=== PATIENT | female | born 1990 | race Caucasian/White ===

== ENCOUNTER 2017-09-27 12:27 | Emergency (ER) | payer OTHER ==
[2017-09-27 13:22] VITALS: BP 108/68
--- NOTE | 2017-09-27 15:04 | UC ---
FLU HPI - HPI Summary HPI Summary: fever and sore throat for 2 days is feeling better today--no cough ear ache, abd pain nausea vomiting or diarrhea - History of Current Complaint Chief Complaint: UCRespiratory Stated Complaint: THROAT COMPLAINT,FEVER Time Seen by Provider: 09/27/17 14:02 Hx Obtained From: Patient Hx Last Menstrual Period: on Depo Provera ?: No Onset/Duration: Sudden Onset, Lasting Days - 2, Still Present - but better Severity Currently: Mild Severity Initially: Mild Associated Signs & Symptoms: Positive: Fever, Sore Throat Related Hx: Possible Flu/Infectious Exposure - works doing day care - Allergy/Home Medications Allergies/Adverse Reactions: Allergies Allergy/AdvReac Type Severity Reaction Status Date / Time No Known Allergies Allergy Verified 09/27/17 13:18 Home Medications: Home Medications Ibuprofen TAB* [Motrin TAB* 600 MG] 400 mg PO Q8H PRN 09/27/17 [History Confirmed 09/27/17] PMH/Surg Hx/FS Hx/Imm Hx Previously Healthy: Yes - Surgical History Surgical History: None - Family History Known Family History: Positive: None Negative: Cardiac Disease, Hypertension - Social History Occupation: Works From/At Home Lives: With Family Alcohol Use: None Substance Use Type: None Smoking Status (MU): Never Smoked Tobacco Review of Systems Constitutional: Fever Skin: Negative Eyes: Negative ENT: Sore Throat Respiratory: Negative Cardiovascular: Negative Gastrointestinal: Negative Genitourinary: Negative Motor: Negative Neurovascular: Negative Musculoskeletal: Negative Neurological: Negative Psychological: Negative Is Patient Immunocompromised?: No All Other Systems Reviewed And Are Negative: Yes Physical Exam Triage Information Reviewed: Yes Appearance: Well-Appearing, No Pain Distress, Well-Nourished Vital Signs: Initial Vital Signs Temp 98.8 F 09/27/17 13:19 Pulse 80 09/27/17 13:19 Resp 18 09/27/17 13:19 BP 108/68 09/27/17 13:19 Pulse Ox 100 09/27/17 13:19 Vital Signs Reviewed: Yes Eye Exam: Normal Eyes: Positive: Conjunctiva Clear ENT Exam: Normal ENT: Positive: Normal ENT inspection, Hearing grossly normal, Pharynx normal, TMs normal, Uvula midline. Negative: Nasal congestion, Nasal drainage, Tonsillar swelling, Tonsillar exudate, Trismus, Muffled voice, Hoarse voice, Dental tenderness, Sinus tenderness Dental Exam: Normal Neck exam: Normal Neck: Positive: Supple, Nontender, No Lymphadenopathy Respiratory Exam: Normal Respiratory: Positive: Chest non-tender, Lungs clear, Normal breath sounds, No respiratory distress, No accessory muscle use Cardiovascular Exam: Normal Cardiovascular: Positive: RRR, No Murmur, Pulses Normal, Brisk Capillary Refill Musculoskeletal Exam: Normal Musculoskeletal: Positive: Strength Intact, ROM Intact, No Edema Neurological Exam: Normal Neurological: Positive: Alert, Muscle Tone Normal Psychological Exam: Normal Skin Exam: Normal Diagnostics - Laboratory Diagnostic Studies Completed/Ordered: RST and Influenza A/B (-) Flu Course/Dx - Course Course Of Treatment: increase fluids tylenol ibuprofen rest otc medications for symptom relief follow with pcp prn - Differential Dx/Diagnosis Provider Diagnoses: Viral pharyngitis, uri Discharge - Discharge Plan Condition: Stable Disposition: HOME Patient Education Materials: Upper Respiratory Infection (ED), Viral Syndrome ( ED) Referrals: Gianni Shaw [Primary Care Provider] - If Needed
== END 2017-09-27 15:14 | disposition home or self-care (01) ==
LOC: UCCORT 12:27
DX: J02.9 Acute pharyngitis, unspecified (principal); J06.9 Acute upper respiratory infection, unspecified
CPT/HCPCS: 87502; 87651; 99211; G0463